=== PATIENT | female | born 1945 | race Native Hawaiian/Other Pacific Islander ===

== ENCOUNTER 2016-12-25 11:34 | Emergency (ER) | payer OTHER ==
[~2016-12-25] VITALS: Ht 172.7 cm; Wt 147.4 kg
[2016-12-25 11:30] VITALS: TEMP 98.3
[~2016-12-25 11:34] MED LIST: ALPR1TAB61 PO; COUMADIN5 MG PO; DICL1GEL2 TOP; DIOVAN HC2 PO; DIOVAN HCT320 MG/25 PO; FOLI1TAB26 PO; HYDR-2748 PO; HYDR25TA60 PO; HYDROCHLOROT12.5 M1 PO; INSU100I2; INSU100I2 SC; INSU100P SC; LIDOPATCH TOP; LIPITOR20 MG PO; METOPROL TAR50 MG PO; MOBIC15 MG OR; NOVOLOG SC; ROPI0.5T; ZOLP10TA2 PO
[2016-12-25 14:04] VITALS: BP 174/79
== END 2016-12-25 14:04 | disposition home or self-care (01) ==
LOC: ED 11:34
DX: M17.12 Unilateral primary osteoarthritis, left knee (principal); M25.462 Effusion, left knee; W06.XXXA Fall from bed, initial encounter; Y92.098 Other place in other non-institutional residence as the place of occurrence of the external cause
CPT/HCPCS: 96372; 99282; J1885

== ENCOUNTER 2016-12-28 14:59 | Inpatient (IN) | payer OTHER ==
[~2016-12-28] VITALS: Ht 174 cm; Wt 142.9 kg
[2016-12-28 15:15] VITALS: BP 173/67; TEMP 98
--- NOTE | 2016-12-28 17:28 | NUR ---
PT TO ROOM 1107 VIA WC FROM ER AT THIS TIME.
[2016-12-28 17:32] VITALS: BP 153/70; TEMP 98.1; Ht 174 cm; Wt 142.9 kg
[2016-12-28 17:52] LABS: PARTIAL THROMBOPLASTIN TIME 44.4 SECONDS (24.5-33.6)
--- NOTE | 2016-12-28 18:17 | NUR ---
DR BOSE CALLED TO VERIFY HEPARIN PROTOCOL. ORDERS TO START PT ON HIGH REGIMEN HEPARIN
--- NOTE | 2016-12-28 18:30 | NUR ---
DR BOSE NOTIFIED OF PT'S COAG LAB WORK. NEW ORDERS GIVEN TO DC HEPARIN AND DC COUMADIN. ORDERED TO CONTINUE HOME MED XANAX 2MG AT BEDTIME.
[2016-12-28] MEDS ORDERED: XANAX2 MG PO (18:31)
[2016-12-28 20:00] VITALS: BP 127/68; TEMP 97.9
[2016-12-28] MEDS ORDERED: LOFIBRA54 MG PO (22:51)
[2016-12-29] VITALS: BP 128/67; TEMP 98.4
[2016-12-29 04:58] VITALS: BP 139/71; TEMP 97.9
[2016-12-29 08:03] VITALS: BP 173/87; TEMP 97.9
[2016-12-29 11:20] LABS: PLATELET COUNT 225 K/uL (152-353)
[2016-12-29 11:30] LABS: POTASSIUM 4.6 mmol/L (3.6-5.2)
[2016-12-29 11:33] LABS: PARTIAL THROMBOPLASTIN TIME 43.9 SECONDS (24.5-33.6)
[2016-12-29 12:00] VITALS: BP 172/82; TEMP 97.7
[2016-12-29 16:27] VITALS: BP 168/86; TEMP 97.8
[2016-12-29 20:00] VITALS: BP 152/70; TEMP 98.3
[2016-12-30] VITALS: BP 161/68; TEMP 97.9
[2016-12-30 04:00] VITALS: BP 154/76; TEMP 98
[2016-12-30 05:37] LABS: PLATELET COUNT 231 K/uL (152-353)
[2016-12-30 05:56] LABS: POTASSIUM 4.3 mmol/L (3.6-5.2); SODIUM 139 mmol/L (136-145)
[2016-12-30 07:52] VITALS: BP 168/64; TEMP 98.5
[2016-12-30 12:00] VITALS: BP 138/63; TEMP 97.4
[2016-12-30 16:00] VITALS: BP 158/69; TEMP 97.8
--- NOTE | 2016-12-30 17:45 | NUR ---
IV D/C'd. NO REDNESS OR EDEMA OBSERVED. DISCHARGE INSTRUCTIONS SIGNED AND GIVEN. Pt. EXIT OUT OF FRONT ENTRANCE VIA W/C
== END 2016-12-30 17:45 | disposition home or self-care (01) | DRG 300 ==
LOC: ED 14:59 → MED/SURG 16:30
PROVIDERS: Internal Medicine
DX: I82.432 Acute embolism and thrombosis of left popliteal vein (principal); Z68.42 Body mass index [BMI] 45.0-49.9, adult; E11.9 Type 2 diabetes mellitus without complications; I10 Essential (primary) hypertension; K21.9 Gastro-esophageal reflux disease without esophagitis; M15.8 Other polyosteoarthritis; E66.01 Morbid (severe) obesity due to excess calories; Z71.3 Dietary counseling and surveillance; M17.12 Unilateral primary osteoarthritis, left knee; M25.462 Effusion, left knee; W06.XXXA Fall from bed, initial encounter; Y92.098 Other place in other non-institutional residence as the place of occurrence of the external cause
CPT/HCPCS: 36415; 80053; 81241; 82948; 83735; 85027; 85303; 85306; 85610; 85613; 85730; 86039; 86147; 96372; 99282; 99284; J1885; J1940; J3490

== ENCOUNTER 2017-01-06 10:42 | Outpatient (CLI) | payer OTHER ==
[~2017-01-06 10:42] MED LIST changes: +LOFIBRA54 MG PO; +XANAX2 MG PO
== END 2017-01-06 19:07 | disposition home or self-care (01) ==
LOC: US 10:42
DX: R60.0 Localized edema (principal); M79.605 Pain in left leg
CPT/HCPCS: 36415; 85610

== ENCOUNTER 2017-01-13 15:45 | Outpatient (CLI) | payer OTHER | END 2017-01-13 16:45 | disposition home or self-care (01) | LOC: US 15:45 | DX: M79.605 Pain in left leg (principal); M25.572 Pain in left ankle and joints of left foot ==

== ENCOUNTER 2017-03-08 11:08 | Outpatient (CLI) | payer OTHER | END 2017-03-08 12:30 | disposition home or self-care (01) | LOC: RAD 11:08 | DX: M25.562 Pain in left knee (principal); M25.561 Pain in right knee ==

== ENCOUNTER 2017-03-14 21:59 | Observation (INO) | payer OTHER ==
[~2017-03-14] VITALS: Ht 174 cm; Wt 147.4 kg
[2017-03-14 22:15] VITALS: BP 196/96; TEMP 98.9
[2017-03-14 23:15] VITALS: BP 167/70
[2017-03-14 23:32] LABS: PLATELET COUNT 242 K/uL (152-353)
[2017-03-14 23:40] LABS: POTASSIUM 4.5 mmol/L (3.6-5.2); SODIUM 131 mmol/L (136-145)
[2017-03-14 23:45] VITALS: BP 164/84
[2017-03-15] VITALS (15 sets, daily range): BP systolic 98–176; BP diastolic 44–97; TEMP 97.7–98.4; Ht 174 cm; Wt 147.4 kg
[2017-03-15 15:40] LABS: PLATELET COUNT 224 K/uL (152-353)
[2017-03-15 16:02] LABS: POTASSIUM 3.9 mmol/L (3.6-5.2)
[2017-03-16] VITALS: BP 123/65; TEMP 98.7
[2017-03-16 04:00] VITALS: BP 128/66; TEMP 98.8
[2017-03-16 04:07] LABS: PLATELET COUNT 204 K/uL (152-353)
[2017-03-16 04:38] LABS: POTASSIUM 4.2 mmol/L (3.6-5.2); SODIUM 134 mmol/L (136-145)
[2017-03-16 08:00] VITALS: BP 139/76; TEMP 99
[2017-03-16] MEDS ORDERED: TRAM50TA PO (10:40)
[2017-03-16] MEDS ORDERED: VALSARTAN80 MG PO (10:41)
[2017-03-16] MEDS ORDERED: ROSU10TA PO (10:42)
[2017-03-16] MEDS ORDERED: METO2.5T3 PO (10:43)
[2017-03-16] MEDS ORDERED: BUMEX2 MG PO (10:43)
[2017-03-16] MEDS ORDERED: NOVOLOG100 MG/ML SC (10:44)
[2017-03-16 12:00] VITALS: BP 108/49; TEMP 98.9
[2017-03-16 16:01] VITALS: BP 145/73; TEMP 98.9
== END 2017-03-16 16:55 | disposition home or self-care (01) ==
LOC: ED 21:59 → MED/SURG 03-15 04:07
PROVIDERS: Emergency Medicine; ADMIT Specialist
DX: R07.89 Other chest pain (principal); R53.1 Weakness; E11.9 Type 2 diabetes mellitus without complications
CPT/HCPCS: 36415; 80048; 80053; 81000; 82550; 82553; 82948; 83735; 83880; 84484; 85027; 85379; 85610; 93005; 96360; 96367; 96372; 96374; 99220; 99284; G0378; J1885; J3475

== ENCOUNTER 2018-12-06 10:22 | Outpatient (CLI) | payer OTHER ==
[~2018-12-06 10:22] MED LIST changes: +BUMEX2 MG PO; +METO2.5T3 PO; +NOVOLOG100 MG/ML SC; +ROSU10TA PO; +TRAM50TA PO; +VALSARTAN80 MG PO
== END 2018-12-06 19:17 | disposition home or self-care (01) ==
LOC: CT 10:22
DX: R41.3 Other amnesia (principal)

== ENCOUNTER 2019-08-08 12:11 | Emergency (ER) | payer OTHER ==
[~2019-08-08] VITALS: Ht 172.7 cm; Wt 152.0 kg
[2019-08-08 12:54] LABS: PLATELET COUNT 250 K/uL (152-353)
[2019-08-08 13:00] LABS: POTASSIUM 4.3 mmol/L (3.6-5.2); SODIUM 142 mmol/L (136-145)
[2019-08-08 14:59] VITALS: BP 149/71; TEMP 98.1
== END 2019-08-08 14:59 | disposition home or self-care (01) ==
LOC: ED 12:11
PROVIDERS: Emergency Medicine
DX: M79.605 Pain in left leg (principal)
CPT/HCPCS: 80053; 82550; 82553; 84484; 85007; 85027; 85379; 93005; 99283

== ENCOUNTER 2020-04-21 09:15 | Outpatient (CLI) | payer OTHER | END 2020-04-21 19:22 | disposition home or self-care (01) | LOC: LABW 09:15 | DX: D72.828 Other elevated white blood cell count (principal) | CPT/HCPCS: 36415; 86304; 86316 ==

== ENCOUNTER 2021-01-21 08:48 | Outpatient (CLI) | payer OTHER | END 2021-01-21 21:56 | LOC: RAD 08:48 | PROVIDERS: ATTEND Nurse Practitioner Family | DX: R06.89 Other abnormalities of breathing (principal); R06.02 Shortness of breath ==

== ENCOUNTER 2021-04-27 20:41 | Emergency (ER) | payer OTHER ==
[~2021-04-27 20:41] MED LIST changes: +FENOFIBRATE PO; -LOFIBRA54 MG PO
== END 2021-04-27 23:35 | disposition home or self-care (01) ==
LOC: ED 20:41
DX: M54.6 Pain in thoracic spine (principal); M54.5 Low back pain; G89.29 Other chronic pain; M51.34 Other intervertebral disc degeneration, thoracic region
CPT/HCPCS: 81000; 96372; 99283; J2270; J2550

== ENCOUNTER 2021-05-02 16:05 | Inpatient (IN) | payer OTHER ==
[~2021-05-02] VITALS: Ht 174 cm; Wt 104.9 kg
[2021-05-02] VITALS (7 sets, daily range): BP systolic 150–197; BP diastolic 54–77; TEMP 98.6–100.1; Ht 174 cm; Wt 104.9 kg
[2021-05-02 16:51] LABS: PLATELET COUNT 245 K/uL (152-353)
[2021-05-02 17:01] LABS: POTASSIUM 4.6 mmol/L (3.6-5.2); SODIUM 139 mmol/L (136-145)
[2021-05-02 17:10] LABS: PARTIAL THROMBOPLASTIN TIME 25.9 SECONDS (24.5-33.6)
[2021-05-03] VITALS: BP 110/47; TEMP 98.6
--- NOTE | 2021-05-03 01:12 | NUR ---
LATE ENTRY 05/02/211999 PATIENT HAS BEEN ASSESSED AND BEEN SETTLED INTO BED. PATIENT IS ON 3L OF 02 AND IS UP IN THE CHAIR. THE PATIENT HAS 2 SORES ON HER MIDDLE BACK AND 2 ON HER RIGHT ABDOMEN. PATEIENT HAS 3+ PITTING EDEMA IN HER BLE LOWER ANKLES. PATIENT LUNG SOUNDS ARE DIMMISHED BUT PATIENT IS BREATHING REGULAARLY. PATIENTS COLOR IS WNL. PATIENT REPORTS MILD BACK PAIN. MEICATIONS ARE TO BE VERIFIED
--- NOTE | 2021-05-03 01:20 | NUR ---
PATIENT WAS GIVEN PRN PAIN MEDICATION AT 2330 05/02/21 WELL HER HOME MEDICATIONS. PAATIENT REFUSED TAKING HER: NAMENA, AMLODIPINE, DONEPEZIL, AND FENOFIBRATE.
--- NOTE | 2021-05-03 01:23 | NUR ---
PATIENT IS RESTING QUIETLY ON HER RIGHT SIDE. BREATHING IS REGULAR NON LABORED
[2021-05-03 04:15] VITALS: BP 110/78; TEMP 97.7
--- NOTE | 2021-05-03 05:17 | NUR ---
0200: patient is resting quietly. patient was helpped to the bedside commode. patient denies tram pain or sob.
--- NOTE | 2021-05-03 05:18 | NUR ---
0400: patient was resting quietly. patient denies any distress. vitals were within normal limmits
--- NOTE | 2021-05-03 05:20 | NUR ---
patient was helped to the bsc. patient reports no pain or sob. patient is still wearing 3l of o2
--- NOTE | 2021-05-03 07:45 | NUR ---
PT RESTING QUIETLY IN BED, NAD NOTED AT THIS TIME. CALL LIGHT IN EASY REACH. WILL CONTINUE TO MONITOR.
[2021-05-03 08:13] VITALS: BP 117/57; TEMP 97.7
--- NOTE | 2021-05-03 08:30 | NUR ---
DUE TO [employer] ISSUES- DOCUMENTING INSULIN ADMIN HERE- OTBS 139- 4 UNITS NOVOLOG ADMIN SQ TO RT HIP PER PT REQUEST.
--- NOTE | 2021-05-03 08:45 | NUR ---
UPDATE GIVEN TO FAMILY MEMBER (MARJORIE). BP MED HELD D/T PRESSURE.
--- NOTE | 2021-05-03 09:00 | NUR ---
PT C/O 9/10 PAIN FROM BACK TO SIDE. PRN PAIN MEDS ADMIN.
--- NOTE | 2021-05-03 11:06 | NUR ---
PT ON L SIDE TALKING ON PHONE, DENIES ACUTE PAIN OR NEEDS AT THIS TIME. CALL LIGHT IN EASY REACH. WILL CONTINUE TO MONITOR.
[2021-05-03 12:00] VITALS: BP 148/63; TEMP 98.2
--- NOTE | 2021-05-03 12:30 | NUR ---
DUE TO [employer]CH ISSUES, GLUCOSE ADMIN NOTED HERE. OTBS 165- 5 UNITS NOVOLOG ADMIN SQ TO RT HIP PER PT REQUEST.
--- NOTE | 2021-05-03 14:11 | NUR ---
PT UP TO BSC FOR BM. ASSISTED PT WITH PERICARE.
--- NOTE | 2021-05-03 14:29 | NUR ---
VO GIVEN BY DR. GRIFFIN TO CONTINUE TO WILLIE PT WITH LASIX. UPDATED DAUGHTER MARJORIE.
[2021-05-03 16:00] VITALS: BP 130/43; TEMP 97.6
--- NOTE | 2021-05-03 16:30 | NUR ---
PTS DAUGHTER IN TO ASSIST WITH SHOWERING.
--- NOTE | 2021-05-03 17:30 | NUR ---
OTBS 158- 5 UNITS NOVOLOG ADMIN SQ TO L HIP PER PT REQUEST.
--- NOTE | 2021-05-03 18:00 | NUR ---
PT SITTING UP IN BED EATING DINNER TRAY, STATES PAIN IS STILL "OK" CURRENTLY. CALL LIGHT IN EASY REACH, BED LOW, LOCKED, SR UP X2 FOR SAFETY. WILL CONTINUE TO MONITOR.
[2021-05-03 20:13] VITALS: BP 142/49; TEMP 98.4
--- NOTE | 2021-05-03 20:39 | NUR ---
patient is resting up in chair. patient just went to the [facility] [place] on her own power. patient reports soem pain but states, "its mild at the moment." patient sores were checked and patients ble have lessened in size. right ankle is +3 pitting edema and left rupal is +2 pitting edema. patient reports so sob, lung sound are clear at apex but dimmished at bases
--- NOTE | 2021-05-03 22:34 | NUR ---
PATIENT RECIEVED PRN PAIN MEDICATION AT 2100. PATIENT IS NOW IN THE BED AND REPORTS RELIEF FROM BACK PAIN.
[2021-05-04] VITALS: BP 113/41; TEMP 98.3
--- NOTE | 2021-05-04 00:29 | NUR ---
patient asked for an ice pack and some prn pain medication. the er doctor was called and iv toradol and morphine was ordered prn
--- NOTE | 2021-05-04 03:19 | NUR ---
PATIENT UP IN CHAIR ASLEEP. NO DISTRESS NOTED. 02 AT 2L ON
[2021-05-04 04:00] VITALS: BP 129/56; TEMP 98.2
[2021-05-04 08:00] VITALS: BP 128/68; TEMP 97.9
[2021-05-04 08:55] LABS: PLATELET COUNT 235 K/uL (152-353)
--- NOTE | 2021-05-04 11:30 | NUR ---
PT SEMI-FOWLERS IN BED. NAD NOTED. PT ALERT AND AWAKE. IV SITE TO LEFT AC INTACT. NO SWELLING OR REDNESS NOTED AND FLUSHES WITH NO DIFFICULTY. AM MEDS ADMINISTERED ORDERED WITH NO DIFFICULTY. NO VOICED COMPLAINTS.
[2021-05-04 12:00] VITALS: BP 128/71; TEMP 97.8
--- NOTE | 2021-05-04 15:33 | NUR ---
PT LAYING IN BED ON LEFT SIDE WITH EYES CLOSED. NAD NOTED. PT DENIES ANY PAIN OR DISCOMFORT AT PRESENT TIME. NO OTHER VOICED COMPLAINTS. EDEMA NOTED TO LOWER EXTREMITIES, NO REDNESS, SKIN WARM/DRY. NO DRAINAGE NOTED FROM SHINGLES RASH TO BACK OR ABDOMEN. CONTINUE TO MONITOR.
[2021-05-04 16:00] VITALS: BP 138/59; TEMP 97.6
--- NOTE | 2021-05-04 18:16 | NUR ---
PT SITTING UP IN BED EATING DINNER. DENIES ANY PAIN OR DISCOMFORT. ADMINISTERED MEDS ORDERED DURING SHIFT AND PT TOLERATED WELL WITH NO DIFFICULTY SWALLOWING. SWELLING NOTED TO LOWER EXTREMITIES, NO CHANGE DURING SHIFT. NAD NOTED. O2 @2LPM VIA NC ON PT. NO ABNORMAL BREATHING NOTED. PT ALERT AND ORIENTED. COOPERATIVE WITH TREATMENT. AC/HS BLOOD SUGAR CHECKS COMPLETED AND COVERED WITH NOVOLOG PER SLIDING SCALE.
--- NOTE | 2021-05-04 19:30 | NUR ---
PT. RESTING QUIETLY WATCHING TV, DENIES ANY COMPLAINTS OR REQUESTS AT THIS TIME. PM SHIFT ASSESSMENT COMPLETED, PT. TOLERATED WELL. PT. IS ALERT AND ORIENTED X 3, SKIN IS WARM AND DRY AND NO ACUTE DISTRESS NOTED AT THIS TIME. CALL LIGHT WITHIN REACH. WILL CONTINUE TO MONITOR.
[2021-05-04 20:00] VITALS: BP 145/68; TEMP 98.5
--- NOTE | 2021-05-04 21:20 | NUR ---
IN PATIENT ROOM TO ADMINISTER PM SCHEDULED MEDS PATIENT TOLERATED THEM WELL, NO DIFFICULTY NOTED TO SWALLOWING HER PO MEDS. PATIENT REQUESTED PAIN MEDS FOR BACK PAIN AND PATIENT WAS GIVEN A NORCO 10/325MG 1 TABLET PO PER MD ORDERS AND TOLERATED THAT WELL. CALL LIGHT WITHIN REACH. WILL CONTINUE TO MONITOR.
--- NOTE | 2021-05-04 22:40 | NUR ---
PATIENT RESTING QUIETLY WITH EYES CLOSED AND NOW DENIES ANY COMPLAINTS AND NO ACUTE DISTRESS NOTED AT THIS TIME. CALL LIGHT WITHIN REACH. WILL CONTINUE TO MONITOR.
[2021-05-05 00:13] VITALS: BP 133/62; TEMP 98.4
[2021-05-05 07:13] LABS: POTASSIUM 5.1 mmol/L (3.6-5.2)
[2021-05-05 08:00] VITALS: BP 148/81; TEMP 98.4
[2021-05-05 08:13] LABS: PLATELET COUNT 249 K/uL (152-353)
--- NOTE | 2021-05-05 10:09 | NUR ---
NOTIFIED DR. GRIFFIN OF PT LETHARGIC AND DROWSY THIS AM AND DIFFICULT TO AROUSE, PT WAS ADMINISTERED ALPRAZOLAM 2MG LAST PM, DR. GRIFFIN STATES IT IS OK TO DC THE ALPRAZOLAM AT THIS TIME, NO FURTHER ORDERS GIVEN
[2021-05-05] MEDS ORDERED: LIPITOR20 MG PO (11:59)
[2021-05-05 12:00] VITALS: BP 133/89; TEMP 98.4
[2021-05-05] MEDS ORDERED: PANTOPRAZOLE 40MG TA PO (12:00)
[2021-05-05] MEDS ORDERED: JANTOVEN4 MG PO (12:01)
[2021-05-05] MEDS ORDERED: MEMA10TA2 PO (12:01)
[2021-05-05] MEDS ORDERED: ROPINIROLE0.5 MG PO (12:04)
[2021-05-05] MEDS ORDERED: GABA300C2 PO ×2 (12:05→12:18)
[2021-05-05] MEDS ORDERED: ANASPAZ0.125 MG PO (12:06)
[2021-05-05] MEDS ORDERED: DONEPEZIL HYDRO10 M1 PO (12:06)
[2021-05-05] MEDS ORDERED: FURO40TA93 PO ×2 (12:07)
[2021-05-05] MEDS ORDERED: TIZANIDINE HYDRO4 MG PO (12:09)
[2021-05-05] MEDS ORDERED: HYDROCODONE BIT1 TAB PO (12:09)
[2021-05-05] MEDS ORDERED: IRBE150T8 PO (12:10)
[2021-05-05] MEDS ORDERED: BISACODYL5 M1 PO (12:11)
[2021-05-05] MEDS ORDERED: CETI10TA PO (12:11)
[2021-05-05] MEDS ORDERED: AMLODIPINE BESYLATE PO (12:14)
[2021-05-05] MEDS ORDERED: VALTREX1 GM PO (12:16)
[2021-05-05 16:00] VITALS: BP 123/64; TEMP 99.4
[2021-05-05 16:50] VITALS: TEMP 98.1
--- NOTE | 2021-05-05 17:54 | NUR ---
Patient is alert and will talk, but has been drowsy this shift. She stated, "that she is just resting, with her eyes closed, but knows what's going on". Patient's O2 sat is currently at 93%, on 2 lpm, of O2, via n/c. Patient had two episodes of loose bm this shift, and is transferring to bs, with assistance. Redness noted to buttocks, and barrier cream applied. Bed linens were changed, but Sandra araya informed this nurse that patient declined to be given a bed bath this shift. No acute distress noted. Call light is within reach and bed alarm is on. Will continuet to monitor.
[2021-05-05 20:00] VITALS: BP 170/69; TEMP 98.6
[2021-05-06 00:25] VITALS: BP 108/45; TEMP 98.3
[2021-05-06 04:21] VITALS: BP 139/68; TEMP 98.1
[2021-05-06 05:40] LABS: POTASSIUM 4.4 mmol/L (3.6-5.2)
[2021-05-06 07:51] LABS: PLATELET COUNT 250 K/uL (152-353)
[2021-05-06 08:00] VITALS: BP 121/52; TEMP 97.7
[2021-05-06 12:00] VITALS: BP 143/55; TEMP 98.7
[2021-05-06 16:00] VITALS: BP 160/67; TEMP 98.6
--- NOTE | 2021-05-06 18:05 | NUR ---
Pt. SITTING UP IN CHAIR EATING.
--- NOTE | 2021-05-06 19:30 | NUR ---
PT. SITTING UP IN CHAIR AT THIS WITH OXYGEN INTACT. PT. IS ALERT AND ORIENTED TIMES 4 AT THIS TIME COMPLAINING OF BACK PAIN. WILL ADDRESS PAIN WITH ONE OF PRN PAIN MEDICINES. SKIN WARM AND DRY AND PT REACTIVE TO VERBAL STIMULI.
--- NOTE | 2021-05-06 20:05 | NUR ---
LASIX 40 MG IV GIVEN AT THIS TIME.
--- NOTE | 2021-05-06 20:05 | NUR ---
NORCO 10/325 GIVEN AT THIS TIME FOR CHRONIC BACK PAIN AT THIS TIME. PT. SITTING UP IN ENMANUEL CHAIR WITH O2 @ 1.5 LPM INTACT AND SATTING 97% AT THIS TIME. LEGS BILATERALLY EDEMATOUS DUE TO CHF.
[2021-05-06 20:23] VITALS: BP 128/66; TEMP 98.3
[2021-05-07 00:07] VITALS: BP 116/55; TEMP 97.2
[2021-05-07 05:09] LABS: PLATELET COUNT 252 K/uL (152-353)
[2021-05-07 05:22] LABS: POTASSIUM 4.1 mmol/L (3.6-5.2)
--- NOTE | 2021-05-07 05:40 | NUR ---
KANDICE FROM LAB CALLED WITH A CRITICAL C02 OF 42 ON PT AT THIS TIME.
--- NOTE | 2021-05-07 06:36 | NUR ---
PT. LAYING IN BED RESTING IN A HIGH-FOWLERS POSITION WITH SIDE RAILS UP TIMES TWO WITH BED IN LOWEST POSITION WITH CALL LIGHT WITHIN REACH. NO S/S OF ACUTE DISTRESS NOTED AT THIS TIME. 1.5 LPM NC INTACT AT THIS TIME.
[2021-05-07 08:00] VITALS: BP 164/77; TEMP 97.6
[2021-05-07 12:00] VITALS: BP 179/67; TEMP 97.8
--- NOTE | 2021-05-07 13:55 | NUR ---
PT IN CHAIR WITH FEET ELEVATED. DENIES ANY PAIN OR DISCOMFORT. SHINGLES TO RIGHT SIDE AND ABDOMEN HAVE CRUSTED BUT NOT ON PTS BACK. NAD NOTED. O2 VIA NC INTACT, WITH SATS AT 95%. EDEMA NOTED TO LOWER EXTREMITIES. NO VOICED COMPLAINTS.
[2021-05-07 16:00] VITALS: BP 172/68; TEMP 97.8
[2021-05-07 20:00] VITALS: BP 175/66; TEMP 98.3
--- NOTE | 2021-05-07 21:17 | NUR ---
PT. RECEIVED ZANAFLEX AT THIS TIME FOR CHRONIC BACK PAIN.
--- NOTE | 2021-05-07 21:25 | NUR ---
PM MEDS GIVEN AT THIS TIME. PT TOLERATED WELL. BS OF 256 ADDRESSED WITH LEVEMIR AND NOVOLOG INSULINS. PT SITTING UP IN A HIGH-FOWLERS POSITION WITH SIDE RAILS UP TIMES TWO WITH BED IN LOWEST POSITION WITH CALL LIGHT WITHIN REACH WITH 2L NC INTACT. PT. IS SATTING 95% AT THIS TIME. NO NEW ACUTE CHANGES OBSERVED,L EXPRESSED OR NOTED AT THIS TIME.
[2021-05-08 04:00] VITALS: BP 119/40; TEMP 98.5
[2021-05-08 04:39] LABS: PLATELET COUNT 264 K/uL (152-353)
[2021-05-08 04:51] LABS: POTASSIUM 4.1 mmol/L (3.6-5.2)
--- NOTE | 2021-05-08 04:59 | NUR ---
THEODORE WOODSON NOTIFED PRE BILLING CLINICIAN OF PT'S CO2 LEVEL OF 44 AT THIS TIME. WILL PASS ON IN AM REPORT.
[2021-05-08 08:00] VITALS: BP 169/66; TEMP 97.7
[2021-05-08 12:00] VITALS: BP 151/52; TEMP 98.1
[2021-05-08 16:00] VITALS: BP 154/59; TEMP 97.4
--- NOTE | 2021-05-08 18:09 | NUR ---
PT UP IN CHAIR MOST OF DAY. ALERT AND AWAKE. NAD NOTED. PT WEARING NC WITH O2@2LPM. PT C/O PAIN R/T SHINGLES AND WAS ADMINISTERED PAIN MEDS ORDERED X2 TODAY. IV SITE TO LAC INTACT AND SALINE LOCK. NO REDNESS OR SWELLING NOTED AT SITE AND FLUSHES WITH EASE. PT COMPLIANT WITH FLUID RESTRICTION ORDER. PT AMBULATES TO BEDSIDE COMMODE NEEDED WITHOUT ASSISTANCE. PT WAS TOLD BY MD THAT SHE WILL BE AT FACILITY THROUGHOUT WEEKEND AND PT IN COMPLIANCE WITH MD DECISION. PT HAS LOWER EXTREMITIES ELEVATED WHILE IN CHAIR. DECREASED EDEMA NOTED TO LOWER EXTREMITIES..
--- NOTE | 2021-05-08 20:00 | NUR ---
IN PT'S ROOM FOR ASSESSMENT, PT IS UP IN THE CHAIR WATCHING TV. PT DENIES ANY PAIN OR NEEDS AT THIS TIME. PT IS ALERT AND ORIENTED AND COULD CARRY ON A CONVERSATION. PT STATED THAT SHE WAS GIVEN LASIX LAST NIGHT AT 2200 AND SHE DID NOT WANT THAT AGAIN. MODELING TEACHER INFORMED PT THAT THE LASIX HAD BEEN RETIMED FOR IN THE AM. PT VERBALIZED UNDERSTANDING. PT WAS LEFT IN THE CHAIR WITH CALL LIGHT WITHIN REACH AND BEDSIDE COMMODE WITHIN REACH.
[2021-05-08 20:12] VITALS: BP 158/57; TEMP 98.7
--- NOTE | 2021-05-08 21:00 | NUR ---
NIGHT TIME MEDICATIONS HAVE BEEN ADMINISTERED TO PT. PT SWALLOWED PILLS WITHOUT DIFFICULTY. SLIDING SCALE INSULIN WAS ADMINISTERED TO PT DUE TO BLOOD SUGAR AT 281, 4 UNITS WERE ADMINISTERED TO THE ABDOMEN. PT WAS ASKED HOW SHE WOULD NORMALLY MANAGE A BLOOD SUGAR OF 281 AT HOME. PT STATED "I WOULD TAKE MY NIGHT TIME INSULIN." PM HEAD COOK EDUCATED PT ON THE SLIDING SCALE INSULIN AND THE SCHEDULED INSULIN AND WHY THEY WERE BEING GIVEN. PT VERBALIZED UNDERSTANDING.
--- NOTE | 2021-05-08 21:20 | NUR ---
PT IS UP TO BEDSIDE COMMODE. PT GOT UP WITHOUT ASSISTANCE, SUPERVISION ONLY AND MADE IT SAFELY TO BEDSIDE COMMODE. PT HELD ONTO BED TO MAINTAIN BALANCE PACKAGING MACHINE SUPPLIES DISTRIBUTOR STOOD BEHIND PT IN CASE OF NEED FOR EXTRA BALANCE. PT VOIDED 300 ML OF URINE. PT WAS GIVE ICE REQUESTED AND LEFT IN THE CHAIR WITH CALL LIGHT WITHIN REACH AND WATCHING TV.
--- NOTE | 2021-05-08 23:30 | NUR ---
PT CALLED TO NURSE'S STATION WANTING HER MUSCLE RELAXER. PRN DOSE OF TIZANIDINE WAS GIVEN. WILL CONTINUE TO MONITOR.
--- NOTE | 2021-05-08 23:45 | NUR ---
PT CALLED TO NURSE'S STATION FOR TELEPHONE PLANT POWER OPERATOR TO COME TO HER ROOM. WHEN TELEPHONE PLANT POWER OPERATOR ENTERED THE PT'S ROOM, PT WAS IN THE BED LAYING ON THE LEFT SIDE. PT WANTED SOME CALAZIME LOTION PUT ON AN IRRITATED AREA ON HER BOTTOM. THE AREA WAS RED AND IRRITATED AND HAD A SCALEY APPEARANCE. CALAZIME LOTION WAS APPLIED AND PT STATED THAT IT HURT WHILE THE LOTION WAS BEING APPLIED. PT STATED THAT SHE HAD THE IRRITATED AREA WHILE AT HOME AND THAT THE CALAZIME SEEMED TO BE HELPING.
[2021-05-09 00:15] VITALS: BP 129/35; TEMP 97.1
--- NOTE | 2021-05-09 03:26 | NUR ---
PT IS ASLEEP IN LOW FOWLERS ON THE RIGHT SIDE. BREATHING IS EVEN AND NONLABORED, PT IS WEARING NASAL CANULA AT 1.5 LPM. PT IS SNORING AND NAD IS NOTED AT THIS TIME. WILL CONTINUE TO MONITOR.
--- NOTE | 2021-05-09 04:33 | NUR ---
LAB IS IN PT'S ROOM DRAWING BLOOD FOR MORNING LABS.
[2021-05-09 05:45] LABS: POTASSIUM 4.1 mmol/L (3.6-5.2)
--- NOTE | 2021-05-09 05:48 | NUR ---
LAB CALLED WITH A CRITICAL LAB VALUE OF 45 FOR CO2. WILL PASS ON TO DAYSHIFT IN REPORT.
[2021-05-09 08:00] VITALS: BP 147/64; TEMP 97.8
[2021-05-09 12:00] VITALS: BP 170/76; TEMP 97.7
[2021-05-09 16:00] VITALS: BP 163/58
--- NOTE | 2021-05-09 17:26 | NUR ---
INFORMED DR. FREY OF PT'S IV INFILTRATING AND PT REFUSING TO BE STUCK AGAIN AT THIS TIME, DR. FREY ORDERS TO DC IV LASIX AND ORDERED LASIX 80MG PO DAILY AT 0700 BEGININNG ON 05/10/21 AND WILL REASSESS OUTPUT TOMORROW, SHE ALSO ORDERS TO RESTART HYDROCODONE
--- NOTE | 2021-05-09 17:45 | NUR ---
PT 2ND UNIT OF PRBC COMPLETE AT THIS TIME, NO INFUSION REACTIONS NOTED, PT TOLERATED WELL, BLOOD BAG RETURNED TO LAB, NS BEGAN INFUSING AT 100ML/HR WIHTOUT DIFFICULTY, NO FURTHER NEEDS AT THIS TIME, WILL CONTINUE TO MONITOR
--- NOTE | 2021-05-09 18:15 | NUR ---
Patient's iv has edema noted at iv site. Patient stated, "that she did not want to be stuck again". Dr Carmichael was called and informed of this, and new order was recieved to d/c iv, and to start po, lasiks. Pt was given a cold compress to put on injection site area, after Iv was removed. Patient is sitting up in chair, with call light within reach.
[2021-05-09 20:00] VITALS: BP 149/55; TEMP 97.8
[2021-05-10 04:00] VITALS: BP 163/63; TEMP 98.1
[2021-05-10 04:57] LABS: POTASSIUM 4.1 mmol/L (3.6-5.2)
--- NOTE | 2021-05-10 05:52 | NUR ---
Pt resting in bed at this time with eyes closed. Cont Valacyclovir for shingles with no adverse reaction noted. Zanaflex given earlier tonight for muscle pain with relief noted. Hydrocodone was also given at 4a for pain related to shingles with relief noted. No s/s of distress at this time noted. Call light in easy reach.
[2021-05-10 08:00] VITALS: BP 147/48; TEMP 98.2
--- NOTE | 2021-05-10 09:05 | NUR ---
PT PREVIOUS IV TO LAC WAS INFILTRATED AND DISCONTINUED ON 05/09/21. PT REFUSED TO HAVE ANOTHER IV ACCESS RESTARTED. NOT ON CONTINUOUS IVF AND LASIX IV DISCONTINUED AND NEW ORDER FOR LASIX PO OBTAINED. PT C/O PAIN R/T SHINGLES TO BACK/ABD. SHINGLES TO UPPER LEFT BACK RED AND TO ABD AND RIGHT SIDE HAVE CRUSTED. PAIN MED ADMINISTERED ORDERED. NAD NOTED. PT UP IN CHAIR WITH O2 INTACT. AM MEDS ADMINISTERED ORDERED WITH NO DIFFICULTY.
[2021-05-10 12:00] VITALS: BP 138/59; TEMP 97.6
--- NOTE | 2021-05-10 15:42 | NUR ---
PT HAD BATH TODAY. UP IN CHAIR. NAD NOTED. DENIES ANY PAIN/DISCOMFORT AT PRESENT TIME.
[2021-05-10 16:00] VITALS: BP 131/51; TEMP 98.3
--- NOTE | 2021-05-10 18:38 | NUR ---
PT UP IN CHAIR. NAD NOTED. DENIES ANY PAIN/DISCOMFORT AT PRESENT TIME. PT ALERT AND AWAKE. PT ON DIABETES AND MONITORING DIET TO CONTROL BS. EDEMA NOTED TO LOWER EXTREMITIES. PT HAS NO IV ACCESS, PT REFUSED. ALL MEDS CHANGED TO PO.
--- NOTE | 2021-05-10 19:57 | NUR ---
Rec'd pt resting in reclined position in chair talking on phone. Requested pain med for back pain. Prn pain med given. No other distress noted at this time.
[2021-05-10 20:00] VITALS: BP 153/59; TEMP 98.4
[2021-05-11 00:29] VITALS: BP 128/69; TEMP 97.8
--- NOTE | 2021-05-11 02:37 | NUR ---
Pt resting in bed on left side with eyes closed. Tizanidine 4mg given at 2334 per pt's request for muscle spasm with relief noted. No further c/o at this time. O2 on @ 2 l/m via nc. No s/s of distress observed. Call light in easy reach.
[2021-05-11 05:54] LABS: POTASSIUM 3.9 mmol/L (3.6-5.2)
[2021-05-11 08:00] VITALS: BP 144/65; TEMP 98.1
--- NOTE | 2021-05-11 11:45 | NUR ---
SPOKE TO [facility]UC[facility] ESTRADA DIETIAN FOR CONSULT. MRS ADKINS TO CONTACT PT FOR VERBAL EDUCATION AND GET MAILING ADDRESS TO MAIL PT CHF DIET INFORMATION.
[2021-05-11 12:00] VITALS: BP 140/48; TEMP 97.8
--- NOTE | 2021-05-11 12:18 | NUR ---
ORDERS SENT TO [facility] FOR THE PATIENTS PORTABLE OXYGEN AND FOR THE HOME CONCENTRATOR. ORDER SENT TO [facility] FOR PHYSICAL THERAPY. A REFERRAL HAS BEEN SENT TO DR. CHAVARRIA OFFICE FOR OUTPATIENT APPOINTMENT.
[2021-05-11] MEDS ORDERED: AMLODIPINE BESYLATE PO (13:12)
[2021-05-11] MEDS ORDERED: ATOR20TA2 PO (13:13)
[2021-05-11] MEDS ORDERED: FURO40TA93 PO ×2 (13:16→13:32)
[2021-05-11] MEDS ORDERED: GABA300C2 PO (13:17)
[2021-05-11] MEDS ORDERED: DONE5TAB PO (13:18)
[2021-05-11] MEDS ORDERED: MEMA10TA2 PO (13:19)
[2021-05-11] MEDS ORDERED: METO50TA27 PO (13:20)
[2021-05-11] MEDS ORDERED: ROPINIROLE0.5 MG PO (13:21)
[2021-05-11] MEDS ORDERED: TIZA4TAB5 PO (13:22)
[2021-05-11] MEDS ORDERED: HYDR10TA47 PO (13:26)
[2021-05-11] MEDS ORDERED: PANTOPRAZOLE 40MG TA PO (13:26)
[2021-05-11] MEDS ORDERED: ELIQUIS5 MG PO (13:30)
[2021-05-11] MEDS ORDERED: LISI5TAB10 PO (14:03)
--- NOTE | 2021-05-11 14:03 | NUR ---
PATIENT SITTING UP IN GERICHAIR AND DENIES ANY NEEDS OR C/O. NO S/SX OF DISTRESS NOTED WITH PATIENT AT THIS TIME.
--- NOTE | 2021-05-11 16:25 | NUR ---
PATIENT C/O OF GENERALIZED PAIN, ZANAFLEX 1 TABLET GIVEN AT THIS TIME. PATIENT TOLERATED WELL.
--- NOTE | 2021-05-11 17:00 | NUR ---
REVIEWED DISCHARGE INSTRUCTIONS WITH PATIENT, REMINDED PATIENT SHE WAS ON 1500ML FLUID RESTRICTION, PT V/O UNDERSTANDING. PATIENT DENIES ANY PAIN, NEEDS OR C/O AT THIS TIME. NO S/SX OF DISTRESS NOTED AT THIS TIME. PATIENT TAKEN TO DAUGHTER'S POV VIA WHEELCHAIR AND ASSISTED PATIENT WITH TRANSFER TO POV WITHOUT DIFFICULTY WITH USE OXYGEN VIA NC @ 2LPM.
== END 2021-05-11 17:12 | disposition home health service (06) | DRG 189 ==
LOC: ED 16:16 → MED/SURG 19:45 → UNDODEPER 05-08 20:22 → MED/SURG 05-11 17:12
PROVIDERS: Emergency Medicine; Internal Medicine; ADMIT Internal Medicine Endocrinology, Diabetes & Metabolism; ATTEND Internal Medicine Endocrinology, Diabetes & Metabolism
DX: J96.01 Acute respiratory failure with hypoxia (principal); Z68.43 Body mass index [BMI] 50.0-59.9, adult; I13.0 Hypertensive heart and chronic kidney disease with heart failure and stage 1 through stage 4 chronic kidney disease, or unspecified chronic kidney disease; E66.01 Morbid (severe) obesity due to excess calories; Z71.3 Dietary counseling and surveillance; E78.49 Other hyperlipidemia; M15.8 Other polyosteoarthritis; B02.9 Zoster without complications; I11.0 Hypertensive heart disease with heart failure; F45.8 Other somatoform disorders; F03.90 Unspecified dementia, unspecified severity, without behavioral disturbance, psychotic disturbance, mood disturbance, and anxiety; G25.81 Restless legs syndrome; K21.9 Gastro-esophageal reflux disease without esophagitis; E11.22 Type 2 diabetes mellitus with diabetic chronic kidney disease; E11.65 Type 2 diabetes mellitus with hyperglycemia; N18.30 Chronic kidney disease, stage 3 unspecified; I50.89 Other heart failure; Z79.4 Long term (current) use of insulin
CPT/HCPCS: 36415; 36600; 80048; 80053; 82805; 82948; 83735; 83880; 84484; 85027; 85379; 85610; 85730; 87635; 93005; 94760; 96372; 96374; 96375; 96376; 99284; J1642; J1815; J1885; J1940; U0003

== ENCOUNTER 2021-06-02 12:01 | Outpatient (CLI) | payer OTHER ==
[~2021-06-02 12:01] MED LIST changes: +AMLODIPINE BESYLATE PO; +ANASPAZ0.125 MG PO; +ATOR20TA2 PO; +BISACODYL5 M1 PO; +CETI10TA PO; +DONE5TAB PO; +DONEPEZIL HYDRO10 M1 PO; +ELIQUIS5 MG PO; +FURO40TA93 PO; +GABA300C2 PO; +HYDR10TA47 PO; +HYDROCODONE BIT1 TAB PO; +IRBE150T8 PO; +JANTOVEN4 MG PO; +LISI5TAB10 PO; +MEMA10TA2 PO; +METO50TA27 PO; +PANTOPRAZOLE 40MG TA PO; +ROPINIROLE0.5 MG PO; +TIZA4TAB5 PO; +TIZANIDINE HYDRO4 MG PO; +VALTREX1 GM PO
== END 2021-06-02 19:21 | disposition home or self-care (01) ==
LOC: RAD 12:01
PROVIDERS: ATTEND Internal Medicine Sleep Medicine
DX: R06.09 Other forms of dyspnea (principal)

== ENCOUNTER 2021-06-22 10:16 | Outpatient (CLI) | payer OTHER ==
[2021-06-22 10:50] LABS: PLATELET COUNT 225 K/uL (152-353)
== END 2021-06-22 21:45 | disposition home or self-care (01) ==
LOC: LABW 10:16
PROVIDERS: ATTEND Specialist
DX: Z00.00 Encounter for general adult medical examination without abnormal findings (principal); K21.9 Gastro-esophageal reflux disease without esophagitis; I10 Essential (primary) hypertension; R06.02 Shortness of breath; R60.9 Edema, unspecified; I50.9 Heart failure, unspecified; E66.9 Obesity, unspecified; E78.5 Hyperlipidemia, unspecified; I25.10 Atherosclerotic heart disease of native coronary artery without angina pectoris; I82.91 Chronic embolism and thrombosis of unspecified vein; Z79.899 Other long term (current) drug therapy
CPT/HCPCS: 36415; 80053; 80061; 85027

== ENCOUNTER 2021-07-08 11:22 | Outpatient (CLI) | payer OTHER | END 2021-07-08 20:37 | disposition home or self-care (01) | LOC: RAD 11:22 | PROVIDERS: ATTEND Nurse Practitioner Family | DX: M25.531 Pain in right wrist (principal); M25.551 Pain in right hip ==

== ENCOUNTER 2021-08-04 10:27 | Outpatient (CLI) | payer OTHER ==
[2021-08-04 11:02] LABS: PLATELET COUNT 266 K/uL (152-353)
[2021-08-04 11:28] LABS: POTASSIUM 4.8 mmol/L (3.6-5.2)
== END 2021-08-04 19:26 | disposition home or self-care (01) ==
LOC: LABW 10:27
PROVIDERS: ATTEND Internal Medicine Nephrology
DX: I10 Essential (primary) hypertension (principal); N18.32 Chronic kidney disease, stage 3b; I50.32 Chronic diastolic (congestive) heart failure; I50.9 Heart failure, unspecified; N18.9 Chronic kidney disease, unspecified
CPT/HCPCS: 36415; 80053; 80061; 82306; 82570; 82728; 83036; 83540; 83550; 83970; 84100; 84155; 84439; 84443; 85027

== ENCOUNTER 2021-12-10 11:35 | Outpatient (CLI) | payer OTHER ==
[2021-12-10 12:26] LABS: PLATELET COUNT 254 K/uL (152-353)
== END 2021-12-10 19:16 | disposition home or self-care (01) ==
LOC: LABW 11:35
PROVIDERS: ATTEND Nurse Practitioner Family
DX: D72.828 Other elevated white blood cell count (principal)
CPT/HCPCS: 36415; 85027

== ENCOUNTER 2022-05-28 11:19 | Outpatient (CLI) | payer OTHER ==
[2022-05-28 11:46] LABS: PLATELET COUNT 261 K/uL (152-353)
== END 2022-05-28 21:36 | disposition home or self-care (01) ==
LOC: LABW 11:19
PROVIDERS: ATTEND Internal Medicine Nephrology
DX: N18.32 Chronic kidney disease, stage 3b (principal); E55.9 Vitamin D deficiency, unspecified; Z79.899 Other long term (current) drug therapy
CPT/HCPCS: 36415; 80053; 80061; 82306; 82570; 84156; 84439; 84443; 85027

== ENCOUNTER 2022-07-26 10:33 | Outpatient (CLI) | payer OTHER ==
[2022-07-26 11:08] LABS: PLATELET COUNT 262 K/uL (152-353)
== END 2022-07-26 20:05 | disposition home or self-care (01) ==
LOC: LABW 10:33
PROVIDERS: ATTEND Nurse Practitioner Family
DX: D72.828 Other elevated white blood cell count (principal)
CPT/HCPCS: 36415; 85027

== ENCOUNTER 2022-08-24 09:28 | Outpatient (CLI) | payer OTHER ==
[2022-08-24 10:23] LABS: POTASSIUM 4.4 mmol/L (3.6-5.2)
== END 2022-08-24 18:55 | disposition home or self-care (01) ==
LOC: LABW 09:28
PROVIDERS: ATTEND Internal Medicine Nephrology
DX: E55.9 Vitamin D deficiency, unspecified (principal); N18.32 Chronic kidney disease, stage 3b; E11.65 Type 2 diabetes mellitus with hyperglycemia; E78.2 Mixed hyperlipidemia; I12.9 Hypertensive chronic kidney disease with stage 1 through stage 4 chronic kidney disease, or unspecified chronic kidney disease
CPT/HCPCS: 36415; 80053; 80061; 82570; 84156; 84439; 84443

== ENCOUNTER 2022-12-06 17:04 | Emergency (ER) | payer OTHER ==
[~2022-12-06] VITALS: Ht 174 cm; Wt 138.3 kg
[2022-12-06 17:10] VITALS: TEMP 98.3
[2022-12-06 17:58] LABS: PLATELET COUNT 288 K/uL (152-353)
[2022-12-06 18:07] LABS: POTASSIUM 3.8 mmol/L (3.6-5.2)
[2022-12-06 21:00] VITALS: BP 142/75
== END 2022-12-06 21:10 | disposition short-term general hospital (02) ==
LOC: ED 17:04
PROVIDERS: Emergency Medicine Emergency Medical Services
PROC: 0D9670Z Drainage of Stomach with Drainage Device, Via Natural or Artificial Opening (ICD-10-PCS; principal; 2022-12-06)
DX: K56.609 Unspecified intestinal obstruction, unspecified as to partial versus complete obstruction (principal)
CPT/HCPCS: 43754; 80053; 82150; 83690; 83735; 84484; 85027; 93005; 96361; 96374; 96375; 99284; J2270; J2405; J3490

== ENCOUNTER 2023-01-03 13:51 | Outpatient (CLI) | payer OTHER | END 2023-01-03 20:54 | disposition home or self-care (01) | LOC: RAD 13:51 | PROVIDERS: ATTEND Nurse Practitioner Family | DX: M25.512 Pain in left shoulder (principal); Z13.820 Encounter for screening for osteoporosis; N95.8 Other specified menopausal and perimenopausal disorders ==